=== PATIENT | female | born 1945 | race Caucasian/White ===

== ENCOUNTER 2016-05-11 11:30 | Emergency (ER) | payer OTHER ==
[2016-05-11 11:41] VITALS: BP 159/71; PULSE 69; TEMP 97.9; BMI 24.6
[2016-05-11] MEDS ORDERED: KETOROLAC TROMETHAMINE 30 MG/1 ML VIAL IVPUSH ONE (12:57)
[2016-05-11] MEDS ORDERED: diazePAM 2 MG TABLET PO ONE (12:57)
[2016-05-11] MEDS ORDERED: diazePAM 2 MG TABLET ONE (13:01)
[2016-05-11] MEDS ORDERED: KETOROLAC TROMETHAMINE 30 MG/1 ML VIAL ONE (13:02)
--- NOTE | 2016-05-11 13:02 | PDOC ---
History of Present Illness - General Chief Complaint: Pain Stated Complaint: LT LEG PAIN Time Seen by Provider: 05/11/16 12:25 History Source: Patient Exam Limitations: No Limitations - History of Present Illness Initial Comments: 05/11/16 12:57 71 year old female with medical history of htn, cholesterol, DM and gastritis with history of breast reduction and unspecified back procedure, reporting pain in lower left back radiating to lower left leg x 3 days . Denies numbness or tingling but reports difficulty walking. States no injury or falls 05/11/16 13:03 Occurred: reports: other (3 days ) Pain Location: reports: back Method of Injury: Yes: unknown Modifying Factors: improves with: immobilization, pain medication Loss of Consciousness: no loss of consciousness Associated Symptoms (Fall): denies symptoms Past History - Travel Traveled outside of the country in the last 30 days: No - Past Medical History Allergies/Adverse Reactions: Allergies Allergy/AdvReac Type Severity Reaction Status Date / Time Sulfa (Sulfonamide Allergy Severe Swelling Verified 05/11/16 11:38 Antibiotics) [Sulfa(Sulfonamide Antibiotics)] Home Medications: Ambulatory Orders Aspirin [ASA -] 81 mg PO DAILY 12/22/14 Dulaglutide [Trulicity] 0 mg SQ ASDIR 12/22/14 Esomeprazole Mag Trihydrate [Nexium] 40 mg PO DAILY 12/22/14 Insulin (Levemir) [Levemir Flexpen -] 18 units SQ PRN 12/22/14 Nebivolol HCl [Bystolic] 10 mg PO DAILY 12/22/14 Raloxifene HCl [Evista] 100 mg PO DAILY 12/22/14 Cyclobenzaprine HCl [Flexeril -] 10 mg PO HS #5 tablet 05/11/16 Ibuprofen 600 mg PO TID #21 tablet 05/11/16 Diabetes: Yes GI Disorders: Yes (GERD) HTN: Yes Hypercholesterolemia: Yes Kidney Stones: Yes Suicide Attempt (Hx): No - Surgical History Cholecystectomy: Yes - Immunization History Immunization Up to Date: Yes - Psycho/Social/Smoking Cessation Hx Anxiety: No Suicidal Ideation: No Smoking Status: No Smoking History: Never smoked Number of Cigarettes Smoked Daily: 0 Information on smoking cessation initiated: No Hx Alcohol Use: No Drug/Substance Use Hx: No Substance Use Type: None Trauma Specific PMHX - Complaint Specific PMHX Arthritis: No Back Injury: No Neck Injury: No Hx Sacro Iliac Joint Dysfunction: No Review of Systems - Review of Systems Able to Perform ROS?: Yes Is the patient limited Kosovan proficient: No Constitutional: No: Chills, Fever, Night Sweats, Weakness, Unexplained wgt Loss HEENTM: No: Tearing, Ear Pain, Nose Pain, Nose Congestion, Tinnitus Respiratory: No: Cough, Orthopnea, Shortness of Breath, Productive cough Cardiac (ROS): No: Edema, Lightheadedness, Palpitations ABD/GI: No: Blood Streaked Bowels, Nausea, Vomiting, Indigestion : No: Burning, Hematuria, Incontinence, Testicular Swelling Musculoskeletal: Yes: Back Pain. No: Joint Pain, Muscle Pain, Muscle Weakness Integumentary: No: Bruising, Erythema Neurological: No: Paresthesia, Tingling, Tremors, Weakness Endocrine: No: Intolerance to Cold, Increased Urine Hematologic/Lymphatic: No: Lymph Node Abnormalities *Physical Exam - Vital Signs Last Vital Signs Temp Pulse Resp BP Pulse Ox 97.9 F 69 18 159/71 98 05/11/16 11:34 05/11/16 11:34 05/11/16 11:34 05/11/16 11:34 05/11/16 11:34 - Physical Exam General Appearance: Yes: Nourished, Appropriately Dressed. No: Apparent Distress HEENT: positive: EOMI, ML, TMs Normal, Pharynx Normal Neck: positive: Supple. negative: Lymphadenopathy (R), Lymphadenopathy (L) Respiratory/Chest: positive: Lungs Clear, Normal Breath Sounds. 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 NML intact, Alert, Normal Response, Motor Strength 5/5 Medical Decision Making - Medical Decision Making 05/11/16 13:06 71 year old female with sciatica pain of left lower back 05/11/16 22:42 toradol im and valium given felt better able to walk after d/c with ibuprofen and flexeril *DC/Admit/Observation/Transfer Diagnosis at time of Disposition: Back pain Qualifiers: Back pain location: low back pain Chronicity: acute Back pain laterality: left Sciatica presence: with sciatica Sciatica laterality: sciatica of left side Qualified Code(s): M54.42 - Lumbago with sciatica, left side - Discharge Dispostion Disposition: HOME Condition at time of disposition: Good Admit: No - Prescriptions Prescriptions: Cyclobenzaprine HCl [Flexeril -] 10 mg PO HS #5 tablet Ibuprofen 600 mg PO TID #21 tablet - Referrals Referrals: Chase Mena MD [Primary Care Provider] - - Patient Instructions Printed Discharge Instructions: DI for Low Back Pain - Post Discharge Activity Work/School Note: Back to Work
[2016-05-11] MEDS ORDERED: KETOROLAC TROMETHAMINE 30 MG/1 ML VIAL IM ONE (13:05)
== END 2016-05-11 13:15 | disposition home or self-care (01) ==
LOC: JERFT 11:30
PROC: 3E0233Z Introduction of Anti-inflammatory into Muscle, Percutaneous Approach (ICD-10-PCS; principal; 2016-05-11)
DX: M54.42 Lumbago with sciatica, left side (principal); I10 Essential (primary) hypertension; E11.9 Type 2 diabetes mellitus without complications; Z79.4 Long term (current) use of insulin; E78.00 Pure hypercholesterolemia, unspecified; K21.9 Gastro-esophageal reflux disease without esophagitis
CPT/HCPCS: 96372; 99281-25

== ENCOUNTER → 2016-05-29 | Emergency (ER) | payer OTHER ==
[2016-05-29 17:00] VITALS: BP 192/95; PULSE 73; TEMP 98.6; BMI 24.6
--- NOTE | 2016-05-29 17:40 | PDOC ---
History of Present Illness - General Chief Complaint: Nausea/Vomiting Stated Complaint: NAUSEA/VOMITING Time Seen by Provider: 05/29/16 17:39 Past History - Past Medical History Allergies/Adverse Reactions: Allergies Allergy/AdvReac Type Severity Reaction Status Date / Time Sulfa (Sulfonamide Allergy Severe Swelling Verified 05/29/16 16:54 Antibiotics) [Sulfa(Sulfonamide Antibiotics)] Home Medications: Ambulatory Orders Aspirin [ASA -] 81 mg PO DAILY 12/22/14 Dulaglutide [Trulicity] 0 mg SQ ASDIR 12/22/14 Esomeprazole Mag Trihydrate [Nexium] 40 mg PO DAILY 12/22/14 Insulin (Levemir) [Levemir Flexpen -] 18 units SQ PRN 12/22/14 Nebivolol HCl [Bystolic] 10 mg PO DAILY 12/22/14 Raloxifene HCl [Evista] 100 mg PO DAILY 12/22/14 Cyclobenzaprine HCl [Flexeril -] 10 mg PO HS #5 tablet 05/11/16 Ibuprofen 600 mg PO TID #21 tablet 05/11/16 Diabetes: Yes GI Disorders: Yes (GERD) HTN: Yes Hypercholesterolemia: Yes Kidney Stones: Yes Suicide Attempt (Hx): No - Surgical History Cholecystectomy: Yes - Immunization History Immunization Up to Date: Yes - Psycho/Social/Smoking Cessation Hx Anxiety: No Suicidal Ideation: No Smoking Status: No Smoking History: Never smoked Have you smoked in the past 12 months: No Number of Cigarettes Smoked Daily: 0 Information on smoking cessation initiated: No Hx Alcohol Use: No Drug/Substance Use Hx: No Substance Use Type: None *Physical Exam - Vital Signs Last Vital Signs Temp Pulse Resp BP Pulse Ox 98.6 F 73 22 192/95 98 05/29/16 16:54 05/29/16 16:54 05/29/16 16:54 05/29/16 16:54 05/29/16 16:54 Medical Decision Making - Medical Decision Making 05/29/16 17:57 Patient was never seen by me- Jorge before I entered her room *DC/Admit/Observation/Transfer Diagnosis at time of Disposition: Patient left before treatment completed - Discharge Dispostion Disposition: ELOPED - Referrals Referrals: Chase Mena MD [Primary Care Provider] - - Attestations Physician Attestion: 05/29/16 17:40 I, Dr. Juancho Freedman, attest that this document has been prepared under my direction and personally reviewed by me in its entirety. I further attest, that it accurately reflects all work, treatment, procedures and medical decision -making performed by me.
== END | disposition left against medical advice (07) ==
LOC: JER 16:50
DX: Z53.21 Procedure and treatment not carried out due to patient leaving prior to being seen by health care provider (principal)
CPT/HCPCS: 99281-25

== ENCOUNTER 2020-09-04 08:51 | Emergency (ER) | payer OTHER ==
[2020-09-04 09:04] VITALS: BP 187/73; PULSE 68; TEMP 98.2; BMI 20.9
[2020-09-04] MEDS ORDERED: ACETAMINOPHEN 325 MG TABLET (FP) PO ONE (09:58)
[2020-09-04] MEDS ORDERED: ACETAMINOPHEN 325 MG TABLET (FP) ONE (10:03)
== END 2020-09-04 14:05 | disposition home or self-care (01) ==
LOC: JER 08:51
DX: S09.90XA Unspecified injury of head, initial encounter (principal)
CPT/HCPCS: 70450-TC; 70486-TC; 72125-TC; 73562-TC-RT-FY; 99285-25

== ENCOUNTER 2021-01-05 11:50 | Emergency (ER) | payer OTHER ==
[2021-01-05 12:33] VITALS: BP 168/71; PULSE 63; TEMP 98.2; BMI 21.9
[2021-01-05] MEDS ORDERED: ACETAMINOPHEN 500 MG TABLET (FP) PO ONE (13:33)
[2021-01-05] MEDS ORDERED: SODIUM CHLORIDE 1,000 ML IV SCH (13:45)
[2021-01-05] MEDS ORDERED: ACETAMINOPHEN 500 MG TABLET (FP) ONE (13:48)
[2021-01-05 14:02] LABS: EOS % 1.6 % (0-4.5); HEMATOCRIT 40.6 % (32.4-45.2); HEMOGLOBIN 13.5 GM/dL (10.7-15.3); LYMPH % 31.7 % (8-40); MCH 30.3 pg (25.7-33.7); MCHC 33.4 g/dl (32.0-36.0); MEAN CELL VOLUME 90.9 fl (80-96); MONO % 4.9 % (3.8-10.2); NEUT % 60.8 % (42.8-82.8); PLATELET COUNT 285 10^3/uL (134-434); RBC 4.46 M/mm3 (3.60-5.2); RDW 12.9 % (11.6-15.6); WHITE BLOOD COUNT 7.8 K/mm3 (4.0-10.0)
[2021-01-05 14:23] LABS: ALBUMIN 4.2 g/dl (3.4-5.0); BLOOD UREA NITROGEN 13.7 mg/dL (7-18); CALCIUM 9.4 mg/dL (8.5-10.1)
[2021-01-05 14:27] LABS: CREATININE 0.7 mg/dL (0.55-1.3)
[2021-01-05 14:28] LABS: BILIRUBIN,TOTAL 0.9 mg/dL (0.2-1); TOT PROT 8.5 g/dl (6.4-8.2)
[2021-01-05 15:43] LABS: PH,URINE 7.5 (5.0-8.0); URINE APPEARANCE CLEAR; URINE BILIRUBIN NEGATIVE (NEGATIVE); URINE COLOR YELLOW; URINE GLUCOSE (UA) NEGATIVE (NEGATIVE); URINE KETONE NEGATIVE (NEGATIVE); URINE LEUK ESTERASE NEGATIVE (NEGATIVE); URINE NITRITE NEGATIVE (NEGATIVE); URINE PROTEIN NEGATIVE (NEGATIVE); URINE UROBILINOGEN 0.2 mg/dL (0.2-1.0)
[2021-01-05] MEDS ORDERED: KETOROLAC TROMETHAMINE 15 MG/ML VIAL IVPUSH PRN (17:04)
[2021-01-05] MEDS ORDERED: KETOROLAC TROMETHAMINE 15 MG/ML VIAL ONE (18:10)
[2021-01-05] MEDS ORDERED: KETOROLAC TROMETHAMINE 15 MG/ML VIAL IVPUSH ONE (18:10)
== END 2021-01-05 19:11 | disposition home or self-care (01) ==
LOC: JERFT 11:50
PROC: 3E0333Z Introduction of Anti-inflammatory into Peripheral Vein, Percutaneous Approach (ICD-10-PCS; principal; 2021-01-05)
DX: M79.10 Myalgia, unspecified site (principal); M62.838 Other muscle spasm
CPT/HCPCS: 36415; 74176-TC; 80053; 81003; 85025; 87086; 93971-TC; 99285-25

== ENCOUNTER 2022-11-18 16:15 | Emergency (ER) | payer OTHER ==
[2022-11-18 16:27] VITALS: TEMP 98.5; BMI 17.8
[2022-11-18] MEDS ORDERED: MAG HYDROX/AL HYDROX/SIMETH 30 ML UNIT-DOSE CUP PO ONE (17:56)
[2022-11-18] MEDS ORDERED: FAMOTIDINE 20 MG/50 ML IVPB 20 MG/50 ML MG IVPB ONE ×2 (17:56→18:10)
[2022-11-18] MEDS ORDERED: MAG HYDROX/AL HYDROX/SIMETH 30 ML UNIT-DOSE CUP ONE (18:10)
[2022-11-18] MEDS ORDERED: ONDANSETRON 4 MG/2 ML VIAL IVPB ONE (18:12)
[2022-11-18] MEDS ORDERED: ONDANSETRON 4 MG/2 ML VIAL ONE (18:29)
[2022-11-18 18:50] LABS: POTASSIUM 4.1 mmol/L (3.5-5.1)
[2022-11-18 18:52] LABS: CALCIUM 10.1 mg/dL (8.5-10.1)
[2022-11-18 18:53] LABS: ALBUMIN 3.9 g/dl (3.4-5.0); BLOOD UREA NITROGEN 16.4 mg/dL (7-18)
[2022-11-18 18:56] LABS: CREATININE 0.8 mg/dL (0.55-1.3)
[2022-11-18 18:57] LABS: BILIRUBIN,TOTAL 0.8 mg/dL (0.2-1); TOT PROT 7.6 g/dl (6.4-8.2)
[2022-11-18 19:03] LABS: BASO % 0.6 % (0-2.0); EOS % 1.9 % (0-4.5); HEMATOCRIT 41.9 % (32.4-45.2); LYMPH % 44.9 % (8-40); MCH 30.1 pg (25.7-33.7); MCHC 33.5 g/dl (32.0-36.0); MEAN CELL VOLUME 89.8 fl (80-96); MEAN PLT VOLUME 7.3 fl (7.5-11.1); MONO % 7.3 % (3.8-10.2); NEUT % 45.3 % (42.8-82.8); PLATELET COUNT 285 10^3/uL (134-434); RBC 4.66 M/mm3 (3.60-5.2); RDW 12.5 % (11.6-15.6); WHITE BLOOD COUNT 7.5 K/mm3 (4.0-10.0)
[2022-11-18 19:37] VITALS: BP 171/83; PULSE 71; RESP 16
== END 2022-11-18 19:35 | disposition home or self-care (01) ==
LOC: JER 16:15
PROC: 3E033GC Introduction of Other Therapeutic Substance into Peripheral Vein, Percutaneous Approach (ICD-10-PCS; principal; 2022-11-18)
PROC: 3E033GC Introduction of Other Therapeutic Substance into Peripheral Vein, Percutaneous Approach (ICD-10-PCS; 2022-11-18)
DX: R10.13 Epigastric pain (principal)
CPT/HCPCS: 36415; 71045-TC-FY; 80053; 83690; 84484; 85025; 93005; 93010; 99285-25

== ENCOUNTER 2023-04-02 13:18 | Emergency (ER) | payer OTHER ==
[2023-04-02 13:36] VITALS: BP 134/61; PULSE 66; RESP 18; TEMP 97.7; BMI 17.8
[2023-04-02] MEDS ORDERED: ACETAMINOPHEN 325 MG TABLET (FP) PO ONE (14:26)
[2023-04-02] MEDS ORDERED: GABAPENTIN 100 MG CAPSULE PO ONE (14:27)
[2023-04-02] MEDS ORDERED: GABAPENTIN 100 MG CAPSULE ONE (14:39)
[2023-04-02] MEDS ORDERED: ACETAMINOPHEN 325 MG TABLET (FP) ONE (14:39)
== END 2023-04-02 14:49 | disposition home or self-care (01) ==
LOC: JERFT 13:18
DX: M79.631 Pain in right forearm (principal); M79.632 Pain in left forearm; M79.661 Pain in right lower leg; M79.662 Pain in left lower leg; G60.9 Hereditary and idiopathic neuropathy, unspecified
CPT/HCPCS: 99283-25

== ENCOUNTER 2023-05-14 14:31 | Emergency (ER) | payer OTHER ==
[2023-05-14 14:43] VITALS: TEMP 98.3; BMI 20.5
[2023-05-14 16:57] LABS: BASO % 0.6 % (0-2.0); EOS % 2.4 % (0-4.5); HEMATOCRIT 35.8 % (32.4-45.2); HEMOGLOBIN 11.7 GM/dL (10.7-15.3); LYMPH % 45.7 % (8-40); MCH 30.1 pg (25.7-33.7); MCHC 32.8 g/dl (32.0-36.0); MEAN CELL VOLUME 91.7 fl (80-96); MEAN PLT VOLUME 7.1 fl (7.5-11.1); MONO % 6.2 % (3.8-10.2); NEUT % 45.1 % (42.8-82.8); PLATELET COUNT 351 10^3/uL (134-434); WHITE BLOOD COUNT 7.8 K/mm3 (4.0-10.0)
[2023-05-14 17:08] LABS: EPI CELLS 2 /uL (0-25.1); HYALINE CASTS 0 /uL (0-3.1); URINE APPEARANCE CLEAR; URINE BACTERIA 1 /uL (0-1359); URINE BILIRUBIN NEGATIVE (NEGATIVE); URINE COLOR YELLOW; URINE GLUCOSE (UA) NEGATIVE (NEGATIVE); URINE KETONE NEGATIVE (NEGATIVE); URINE LEUK ESTERASE TRACE (NEGATIVE); URINE NITRITE NEGATIVE (NEGATIVE); URINE PROTEIN NEGATIVE (NEGATIVE); URINE RBC 5 /uL (0-23.9); URINE UROBILINOGEN 0.2 mg/dL (0.2-1.0); URINE WBC 18 /uL (0-25.8)
[2023-05-14 17:23] LABS: POTASSIUM 4.3 mmol/L (3.5-5.1)
[2023-05-14 17:25] LABS: CALCIUM 9.3 mg/dL (8.5-10.1)
[2023-05-14 17:26] LABS: ALBUMIN 3.7 g/dl (3.4-5.0); MAGNESIUM 2.2 mg/dL (1.8-2.4)
[2023-05-14 17:29] LABS: CREATININE 0.6 mg/dL (0.55-1.3)
[2023-05-14 17:30] LABS: BILIRUBIN,TOTAL 0.5 mg/dL (0.2-1); TOT PROT 7.5 g/dl (6.4-8.2)
[2023-05-14 18:57] VITALS: BP 197/66; PULSE 60; RESP 20
== END 2023-05-14 19:32 | disposition home or self-care (01) ==
LOC: JER 14:31
DX: I10 Essential (primary) hypertension (principal); M54.2 Cervicalgia; H53.8 Other visual disturbances; Z20.822 Contact with and (suspected) exposure to COVID-19
CPT/HCPCS: 0241U-QW; 36415; 70450-TC; 71045-TC-FY; 80053; 81003; 83735; 84443; 84484; 85025; 87086; 93005; 93010; 99285-25

== ENCOUNTER 2024-10-06 08:47 | Emergency (ER) | payer OTHER ==
[2024-10-06 08:58] VITALS: RESP 16; BMI 20.2
[2024-10-06] MEDS ORDERED: BACITRACIN 0.9 GM PACKET ONE (10:54)
[2024-10-06] MEDS: BACITRACIN ZINC 15 GM TUBE TOPICAL OINTMENT TP SCH (10:56)
[2024-10-06 10:57] VITALS: BP 151/63; PULSE 60; TEMP 98
[2024-10-06] MEDS ORDERED: BACITRACIN ZINC 15 GM TUBE TOPICAL OINTMENT ONE (11:30)
== END 2024-10-06 11:56 | disposition home or self-care (01) ==
LOC: JER 08:47
DX: N89.8 Other specified noninflammatory disorders of vagina (principal); L08.9 Local infection of the skin and subcutaneous tissue, unspecified
CPT/HCPCS: 99283-25

== ENCOUNTER 2024-11-18 16:31 | Emergency (ER) | payer OTHER ==
[2024-11-18 16:33] VITALS: BP 125/67; PULSE 61; RESP 18; TEMP 98.1; BMI 21.4
== END 2024-11-18 18:51 | disposition home or self-care (01) ==
LOC: JERFT 16:31
DX: S29.012A Strain of muscle and tendon of back wall of thorax, initial encounter (principal); M54.2 Cervicalgia; R68.84 Jaw pain; V43.62XA Car passenger injured in collision with other type car in traffic accident, initial encounter; Y92.410 Unspecified street and highway as the place of occurrence of the external cause
CPT/HCPCS: 70450-TC; 70486-TC; 72125-TC; 72128-TC; 99284-25

== ENCOUNTER 2024-11-30 12:13 | Emergency (ER) | payer OTHER ==
[2024-11-30 12:30] VITALS: BP 129/56; PULSE 63; RESP 18; TEMP 98.4; BMI 20.5
[2024-11-30] MEDS ORDERED: diphenhydrAMINE HCL 25 MG CAPSULE (FP) PO ONE (13:38)
[2024-11-30] MEDS: diphenhydrAMINE HCL 25 MG CAPSULE (FP) PO ONE (13:40)
[2024-11-30] MEDS ORDERED: BACITRACIN 0.9 GM PACKET ONE (13:52)
== END 2024-11-30 14:38 | disposition home or self-care (01) ==
LOC: JER 12:13
DX: S81.802A Unspecified open wound, left lower leg, initial encounter (principal); L29.9 Pruritus, unspecified; X58.XXXA Exposure to other specified factors, initial encounter
CPT/HCPCS: 82962; 99283-25